=== PATIENT | male | born 1955 | race Caucasian/White ===

== ENCOUNTER 2016-08-11 13:22 | Emergency (ER) | payer MEDICARE ==
[2016-08-11 14:33] VITALS: BP 137/81
--- NOTE | 2016-08-11 15:37 | UC ---
Lower Extremity/Ankle HPI - HPI Summary HPI Summary: Patient was attending to her dog, tripped over something on the floor, landing on the outside of her ankle early this morning. - History of Current Complaint Chief Complaint: UCLowerExtremity Stated Complaint: RIGHT ANKLE INJURY Time Seen by Provider: 08/11/16 15:04 Hx Obtained From: Patient Onset/Duration: Sudden Onset, Lasting Hours Severity Initially: Severe Severity Currently: Severe Aggravating Factor(s): Standing, Ambulation Alleviating Factor(s): Rest Able to Bear Weight: No - Allergies/Home Medications Allergies/Adverse Reactions: Allergies Allergy/AdvReac Type Severity Reaction Status Date / Time Morphine Allergy Headache Verified 08/11/16 14:33 Home Medications: Home Medications Albuterol HFA INHALER* [Ventolin HFA Inhaler*] 2 puff INH Q6H PRN 08/11/16 [ History Confirmed 08/11/16] Aspirin [Aspirin 81 MG TAB] 81 mg PO DAILY 08/11/16 [History Confirmed 08/11/16] Gabapentin CAP(*) [Neurontin 100 mg CAP(*)] 100 mg PO BID 08/11/16 [History Confirmed 08/11/16] Losartan TAB* [Cozaar TAB*] 25 mg PO DAILY 08/11/16 [History Confirmed 08/11/16] Multiple Vitamin [Multivitamins] 1 cap PO DAILY 08/11/16 [History Confirmed 05/29] Naproxen TAB* [Naprosyn 250 mg TAB*] 250 mg PO Q8H PRN 08/11/16 [History Confirmed 08/11/16] Rosuvastatin Calcium [Crestor] 5 mg PO DAILY 08/11/16 [History Confirmed ] Spiriva Inhaler DEVICE* [Tiotropium Inhaler DEVICE*] 2 inh DAILY 08/11/16 [ History Confirmed 08/11/16] PMH/Surg Hx/FS Hx/Imm Hx Previously Healthy: Yes Respiratory History Of: Reports: COPD - Surgical History Surgical History: None Surgery Procedure, Year, and Place: NON TO HIS HEART OR LUNGS - Family History Known Family History: Positive: Hypertension, Renal Disease - Social History Alcohol Use: Rare Substance Use Type: None Smoking Status (MU): Former Smoker Review of Systems Constitutional: Negative Skin: Negative Eyes: Negative ENT: Negative Respiratory: Negative Cardiovascular: Negative Gastrointestinal: Negative Genitourinary: Negative Motor: Negative Neurovascular: Other - hpery sensitivity under the 2nd toe on the ball of foot Musculoskeletal: Arthralgia, Decreased ROM, Myalgia Neurological: Negative Psychological: Negative All Other Systems Reviewed And Are Negative: Yes Physical Exam Triage Information Reviewed: Yes Appearance: Well-Appearing, Well-Nourished, Pain Distress Vital Signs: Initial Vital Signs Temp 98.8 F 08/11/16 14:29 Pulse 87 08/11/16 14:29 Resp 18 08/11/16 14:29 BP 137/81 08/11/16 14:29 Pulse Ox 97 08/11/16 14:29 Vital Signs Reviewed: Yes Eye Exam: Normal Eyes: Positive: Conjunctiva Clear ENT Exam: Normal ENT: Positive: Hearing grossly normal, Pharynx normal, Nasal drainage, TMs normal Dental Exam: Normal Neck exam: Normal Neck: Positive: Supple, Nontender, No Lymphadenopathy Respiratory Exam: Normal Respiratory: Positive: Chest non-tender, Lungs clear, Normal breath sounds Cardiovascular Exam: Normal Cardiovascular: Positive: RRR, No Murmur, Pulses Normal Abdominal Exam: Normal Abdomen Description: Positive: Nontender, No Organomegaly, Soft Musculoskeletal: Positive: No Edema, Strength Limited @ - in right ankle, ROM is limited due ot apin in all directions, Other: - pain over the peronial tendon and anterolateral talofibular ligament Neurological Exam: Normal Neurological: Positive: Alert, Muscle Tone Normal Psychological Exam: Normal Skin Exam: Normal Lower Extremity Course/Dx - Course Course Of Treatment: hx obtained, exam performed, meds reviewed, xray neg for any acute bony injury. melania wrap and walker given, educated on RICE therapy - Differential Dx/Diagnosis Differential Diagnosis/HQI/PQRI: Contusion, Dislocation, Fracture (Closed), Sprain, Strain Provider Diagnoses: muscle strain of lower leg,. ankle sprain, left lateral Discharge - Discharge Plan Condition: Stable Disposition: HOME Patient Education Materials: Ankle Sprain (ED), Rebolledo Neuroma (ED) Referrals: Hermes Zarco MD [Primary Care Provider] - Additional Instructions: Rest your foot and keep it elevated for the next 48 hours, ice or heat as tolerated. Tylenol or ibuprofen for pain and swelling. Use the walker to assist in weight bearing. Follow up with any worsening symptoms.
--- NOTE | 2016-08-11 15:39 | RAD ---
INDICATION: Right ankle pain and swelling. TECHNIQUE: 3 views of the right ankle were obtained. FINDINGS: There is mild anterolateral soft tissue swelling. The bones are in normal alignment. No fracture is seen. Joint spaces appear maintained. IMPRESSION: MILD SOFT TISSUE SWELLING, NO FRACTURE IS SEEN.
--- NOTE | 2016-08-11 15:42 | UC ---
Lower Extremity/Ankle HPI - HPI Summary HPI Summary: Patient has had on and off swelling and pain in the right ankle for the past 2 weeks, does not remember injurying it, It is painful on left side. - History of Current Complaint Chief Complaint: UCLowerExtremity Stated Complaint: RIGHT ANKLE INJURY Time Seen by Provider: 08/11/16 15:04 Hx Obtained From: Patient Onset/Duration: Sudden Onset, Lasting Hours, Lasting Days Severity Initially: Moderate Severity Currently: Moderate Aggravating Factor(s): Standing, Ambulation Alleviating Factor(s): Rest Able to Bear Weight: No - Allergies/Home Medications Allergies/Adverse Reactions: Allergies Allergy/AdvReac Type Severity Reaction Status Date / Time Morphine Allergy Headache Verified 08/11/16 14:33 Home Medications: Home Medications Albuterol HFA INHALER* [Ventolin HFA Inhaler*] 2 puff INH Q6H PRN 08/11/16 [ History Confirmed 08/11/16] Aspirin [Aspirin 81 MG TAB] 81 mg PO DAILY 08/11/16 [History Confirmed 08/11/16] Gabapentin CAP(*) [Neurontin 100 mg CAP(*)] 100 mg PO BID 08/11/16 [History Confirmed 08/11/16] Losartan TAB* [Cozaar TAB*] 25 mg PO DAILY 08/11/16 [History Confirmed 08/11/16] Multiple Vitamin [Multivitamins] 1 cap PO DAILY 08/11/16 [History Confirmed 05/29] Naproxen TAB* [Naprosyn 250 mg TAB*] 250 mg PO Q8H PRN 08/11/16 [History Confirmed 08/11/16] Rosuvastatin Calcium [Crestor] 5 mg PO DAILY 08/11/16 [History Confirmed ] Spiriva Inhaler DEVICE* [Tiotropium Inhaler DEVICE*] 2 inh DAILY 08/11/16 [ History Confirmed 08/11/16] PMH/Surg Hx/FS Hx/Imm Hx Previously Healthy: Yes Respiratory History Of: Reports: COPD - Surgical History Surgical History: None Surgery Procedure, Year, and Place: NON TO HIS HEART OR LUNGS - Family History Known Family History: Positive: Cardiac Disease, Hypertension - Social History Alcohol Use: Rare Substance Use Type: None Smoking Status (MU): Former Smoker Review of Systems Constitutional: Negative Skin: Negative Eyes: Negative ENT: Negative Respiratory: Negative Cardiovascular: Negative Gastrointestinal: Negative Genitourinary: Negative Motor: Negative Neurovascular: Other - hpery sensitivity under the 2nd toe on the ball of foot Musculoskeletal: Arthralgia, Decreased ROM, Myalgia Neurological: Negative Psychological: Negative All Other Systems Reviewed And Are Negative: Yes Physical Exam Triage Information Reviewed: Yes Appearance: Well-Appearing, Well-Nourished, Pain Distress Vital Signs: Initial Vital Signs Temp 98.8 F 08/11/16 14:29 Pulse 87 08/11/16 14:29 Resp 18 08/11/16 14:29 BP 137/81 08/11/16 14:29 Pulse Ox 97 08/11/16 14:29 Vital Signs Reviewed: Yes Eye Exam: Normal Eyes: Positive: Conjunctiva Clear ENT Exam: Normal ENT: Positive: Hearing grossly normal, Pharynx normal, Nasal drainage, TMs normal Dental Exam: Normal Neck exam: Normal Neck: Positive: Supple, Nontender, No Lymphadenopathy Respiratory Exam: Normal Respiratory: Positive: Chest non-tender, Lungs clear, Normal breath sounds Cardiovascular Exam: Normal Cardiovascular: Positive: RRR, No Murmur, Pulses Normal Abdominal Exam: Normal Abdomen Description: Positive: Nontender, No Organomegaly, Soft Musculoskeletal: Positive: No Edema, Strength Limited @ - in right ankle, ROM is full, he is able to weight bear, ambulates with a limp, Edema @ - mild ankle and foot swelling, Other: - pain over the peronial tendon and anterolateral talofibular ligament Neurological Exam: Normal Neurological: Positive: Alert, Muscle Tone Normal Psychological Exam: Normal Skin Exam: Normal Lower Extremity Course/Dx - Course Course Of Treatment: hx obtained, exam performed, meds reviewed, xray neg for any fracture, educated on RICE - Differential Dx/Diagnosis Differential Diagnosis/HQI/PQRI: Contusion, Dislocation, Fracture (Closed), Sprain, Strain Provider Diagnoses: rigth ankle fracture Discharge - Discharge Plan Condition: Stable Disposition: HOME Patient Education Materials: Ankle Sprain (ED) Referrals: Hermes Zarco MD [Primary Care Provider] - Additional Instructions: Rest your foot and keep it elevated for the next 48 hours, ice or heat as tolerated. Tylenol or ibuprofen for pain and swelling. Use the walker to assist in weight bearing. Follow up with any worsening symptoms.
== END 2016-08-11 15:59 | disposition home or self-care (01) ==
LOC: UCCORT 13:22
DX: S86.812A Strain of other muscle(s) and tendon(s) at lower leg level, left leg, initial encounter (principal); S96.912A Strain of unspecified muscle and tendon at ankle and foot level, left foot, initial encounter; W01.0XXA Fall on same level from slipping, tripping and stumbling without subsequent striking against object, initial encounter; Y93.9 Activity, unspecified; Y99.9 Unspecified external cause status; Z88.6 Allergy status to analgesic agent
CPT/HCPCS: 99211; G0463